=== PATIENT | female | born 1965 | race Caucasian/White ===

== ENCOUNTER → 2016-07-20 | Outpatient (CLI) | payer OTHER ==
[~2016-07-20] MED LIST: COLACE100 MG PO; ESTRACE0.5 MG VG; IBUPROFEN600 MG PO; NORCO 5-325 TA1 EACH PO
[2016-07-20 09:49] LABS: HEMOGLOBIN 14.5 gm/dl (12.3-15.3); RED BLOOD COUNT 4.79 M/UL (4.00-5.10); WHITE BLOOD COUNT 7.8 K/UL (4.5-11.0)
== END ==
LOC: OPSV2 08:40
PROVIDERS: Obstetrics & Gynecology
DX: Z01.812 Encounter for preprocedural laboratory examination (principal); N90.89 Other specified noninflammatory disorders of vulva and perineum
CPT/HCPCS: 36415; 81001; 85025

== ENCOUNTER → 2016-08-03 | Day surgery (SDC) | payer OTHER | END | disposition home or self-care (01) | LOC: OR 06:15 | PROVIDERS: Obstetrics & Gynecology | PROC: 0UBM0ZZ Excision of Vulva, Open Approach (ICD-10-PCS; principal; 2016-08-03 08:15) | DX: D07.1 Carcinoma in situ of vulva (principal); K21.9 Gastro-esophageal reflux disease without esophagitis; M19.90 Unspecified osteoarthritis, unspecified site; M54.9 Dorsalgia, unspecified; F41.9 Anxiety disorder, unspecified; F32.9 Major depressive disorder, single episode, unspecified; F17.210 Nicotine dependence, cigarettes, uncomplicated; Z82.49 Family history of ischemic heart disease and other diseases of the circulatory system; Z82.5 Family history of asthma and other chronic lower respiratory diseases; Z88.5 Allergy status to narcotic agent; Z79.899 Other long term (current) drug therapy | CPT/HCPCS: 11403; J2250; J2795; J7120 ==

== ENCOUNTER 2021-12-23 11:42 | Emergency (ER) | payer OTHER ==
[~2021-12-23 11:42] MED LIST changes: +TYLENOL 325MG325 MG PO
[2021-12-23 13:57] LABS: HEMOGLOBIN 10.8 gm/dl (12.3-15.3); RED BLOOD COUNT 4.08 M/UL (4.00-5.10); WHITE BLOOD COUNT 8.2 K/UL (4.5-11.0)
[2021-12-23 15:53] LABS: BUN/CREATININE RATIO 11 (0-10)
[2021-12-23] MEDS ORDERED: AZITHROMYCIN250 MG PO (17:45)
[2021-12-23] MEDS ORDERED: AMOX TR-K CLV1 EAC4 PO (17:45)
== END 2021-12-23 18:06 | disposition home or self-care (01) ==
LOC: ER1 11:42
PROVIDERS: Physician Assistant
DX: J18.9 Pneumonia, unspecified organism (principal); E78.5 Hyperlipidemia, unspecified; I10 Essential (primary) hypertension; F17.210 Nicotine dependence, cigarettes, uncomplicated; Z88.5 Allergy status to narcotic agent; Z20.822 Contact with and (suspected) exposure to COVID-19
CPT/HCPCS: 0240U; 71045; 80053; 81001; 82550; 82553; 83605; 84484; 85025; 85379; 87086; 93005; 99285